=== PATIENT | male | born 1960 | race Caucasian/White ===

== ENCOUNTER 2016-11-17 13:55 | Emergency (ER) | payer SELFPAY ==
[~2016-11-17] VITALS: Ht 154.9 cm; Wt 99.8 kg
[2016-11-17] MEDS ORDERED: ALBUTEROL SULFATE 2.5 MG/3 ML NEBU NEB ONE (14:15)
[2016-11-17] MEDS ORDERED: methylPREDNISolone SOD SUCC 125 MG/2 ML VIAL IV ONE (14:15)
[2016-11-17] MEDS ORDERED: IPRATROPIUM BROMIDE 0.5 MG/2.5 ML NEBU NEB ONE (14:15)
[2016-11-17] MEDS ORDERED: CARV6.25 PO (14:26)
[2016-11-17] MEDS ORDERED: RAMI5CAP30 PO (14:26)
[2016-11-17] MEDS ORDERED: BUPR1FIL3 SL (14:26)
[2016-11-17] MEDS ORDERED: DIAZ10TA PO (14:26)
--- NOTE | 2016-11-17 14:26 | NUR ---
MEDICATION LIST OBTAINED FROM [facility] PER PT'S DIRECTIVE TO CALL THEM.
--- NOTE | 2016-11-17 14:29 | NUR ---
pt arrived with 20g saline lock to left hand, pt presently receiving, resp tx, cxr done, solumedrol adm, [id number]% on treatment.lab [facility] the blood.
[2016-11-17] MEDS ORDERED: methylPREDNISolone SOD SUCC 125 MG/2 ML VIAL ONE (14:36)
[2016-11-17] MEDS ORDERED: ALBUTEROL SULFATE 2.5 MG/3 ML NEBU ONE (14:39)
[2016-11-17] MEDS ORDERED: IPRATROPIUM BROMIDE 0.5 MG/2.5 ML NEBU ONE (14:39)
[2016-11-17 14:45] LABS: HEMOGLOBIN 15.9 G/DL (14.0-18.0); MEAN CORPUSCULAR HEMOGLOBIN 35.7 UUG (27.0-31.0); MEAN CORPUSCULAR HGB CONC 33 g/dL (32.0-37.0); MEAN CORPUSCULAR VOLUME 109.8 FL (82.0-92.0); PLATELET COUNT (AUTO) 93 K/UL (150-450); RED BLOOD CELL COUNT(AUTO) 4.46 MIL/UL (4.7-6.1); WHITE BLOOD COUNT (AUTO) 7.4 K/UL (4.0-11.2)
[2016-11-17 14:51] LABS: CREATININE 2.3 mg/dL (0.6-1.3); POTASSIUM 3.6 mmol/L (3.5-5.1)
[2016-11-17 15:03] LABS: BILIRUBIN,DIRECT 2.2 mg/dL (0.0-0.2); BILIRUBIN,TOTAL 2.9 mg/dL (0.2-1.0); TOTAL PROTEIN, SERUM 5.7 g/dL (6.4-8.2)
[2016-11-17 15:38] LABS: BAND % (MANUAL) 45 % (0-10); LYMPHOCYTES % (MANUAL) 11 % (20-40); MONOCYTES % (MANUAL) 3 % (2-10); NEUTROPHILS % (MANUAL) 41 % (42-75)
--- NOTE | 2016-11-17 15:55 | NUR ---
PT REFUSED TO BE ADMITTED, DR BERNABE SPOKE WITH THE PT AND PT STATERD THAT SOMEONE IS TO COME PICK HIM UP . PT HAD IV D/C'D INTACT. PT ON 3L O2 VIA N/C.
--- NOTE | 2016-11-17 16:24 | NUR ---
PT SIGNED AMA FORM EARLIER, PT'S FRIEND ARRIVED WITH W/C, PT TOOK ALL BELONGINGS.
[2016-11-17 16:27] VITALS: BP 122/75
== END 2016-11-17 16:28 | disposition left against medical advice (07) ==
LOC: ER 13:55
DX: J44.1 Chronic obstructive pulmonary disease with (acute) exacerbation (principal); F17.210 Nicotine dependence, cigarettes, uncomplicated; I10 Essential (primary) hypertension; F10.20 Alcohol dependence, uncomplicated
CPT/HCPCS: 36415; 70030-TC; 71010; 85025; 93005; A4663; J2930; J3590